=== PATIENT | female | born 2000 | race Caucasian/White ===

== ENCOUNTER 2025-04-04 12:24 | Outpatient (CLI) | payer BC, SELFPAY ==
[2025-04-04 13:14] LABS: Hematocrit 37.1 % (37.0-47.0); Hemoglobin 12.8 g/dL (12.0-15.0); Mean Corpuscular HGB Conc 34.5 g/dl (32-36); Mean Corpuscular Hemoglobin 30.0 pg (26-34); Mean Corpuscular Volume 86.9 fl (80-100); Platelet Count Result 231 k/mm3 (150-375); Red Blood Count 4.27 M/mm3 (4.2-5.4); White Blood Count 9.6 K/mm3 (4.5-10.0)
[2025-04-04 14:07] LABS: HIV 1/2 Ab P24 Ag Result Negative (Negative)
[2025-04-04 15:12] LABS: Thyroid Stimulating Hormone 1.650 uIU/mL (0.465-4.680)
[2025-04-04 17:22] LABS: Syphilis IgG/IgM Antibody Non-Reactive (Nonreactive)
[2025-04-04 17:51] LABS: Hepatitis B Surface Antigen Negative (Negative)
[2025-04-05 07:09] LABS: Varicella-Zoster Ab, IgG Reactive (Non Reactive)
== END 2025-04-04 12:25 | disposition home or self-care (01) ==
LOC: ANHLAB 12:27
PROVIDERS: Visit Provider Obstetrics & Gynecology
DX: Z34.90 Encounter for supervision of normal pregnancy, unspecified, unspecified trimester (principal); Z3A.00 Weeks of gestation of pregnancy not specified
CPT/HCPCS: 36415; 83021; 84443; 85027; 86593; 86703; 86762; 86787; 86803; 86850; 86900; 86901; 87340; G0432